=== PATIENT | male | born 1965 | race American Indian/Alaskan Native ===

== ENCOUNTER 2017-11-19 02:00 | Emergency (ER) | payer OTHER ==
[2017-11-19 03:22] VITALS: BP 162/88; PULSE 86; RESP 18; TEMP 98.2; O2SAT 99
--- NOTE | 2017-11-19 03:29 | ED PDOC ---
Arrival/HPI - General Chief Complaint: High Blood Pressure Time Seen by Provider: 11/19/17 03:19 Historian: Patient - History of Present Illness Narrative History of Present Illness (Text): 11/19/17 03:29 Rebekah Godfrey is a 52 year old male, whose past medical history includes hypertension, who presents to the Emergency department complaining of high blood pressure and chest pain. Patient states he has been experiencing high blood pressure for the past 2 days at home with associated headache and some chest tightness. Patient states he underwent a cardiac catheterization in 2016 but denies any stent placement. Patient denies any fever, chills, nausea, vomiting, diarrhea, urinary symptoms, back pain, neck pain, headache, dizziness , or any other complaints. Time/Duration: < week (2 days) Symptom Onset: Gradual Symptom Course: Unchanged Activities at Onset: Light Context: Home Past Medical History - Provider Review Nursing Documentation Reviewed: Yes - Cardiac Hx Hypertension: No - Psychiatric Hx Substance Use: No Family/Social History - Physician Review Nursing Documentation Reviewed: Yes Family/Social History: Unknown Family HX Smoking Status: n Hx Alcohol Use: No Hx Substance Use: No Allergies/Home Meds Allergies/Adverse Reactions: Allergies No Known Allergies Allergy (Verified 11/19/17 02:48) Home Medications: Home Meds Medication Instructions Recorded Confirmed Alprazolam [Xanax] 0.25 mg PO BID 11/19/17 11/19/17 Valsartan/Hydrochlorothiazide 1 each PO DAILY 11/19/17 11/19/17 [Diovan Hct 320-12.5 mg Tab] Review of Systems - Physician Review All systems were reviewed & negative as marked: Yes - Review of Systems Constitutional: Normal. absent: Fevers Eyes: Normal ENT: Normal Respiratory: Normal. absent: SOB, Cough Cardiovascular: Chest Pain Gastrointestinal: Normal. absent: Abdominal Pain, Diarrhea, Nausea, Vomiting Genitourinary Male: Normal. absent: Dysuria, Frequency, Hematuria, Urinary Output Changes Musculoskeletal: Normal. absent: Back Pain, Neck Pain Skin: Normal. absent: Rash Neurological: Headache. absent: Dizziness Endocrine: Normal Hemo/Lymphatic: Normal Psychiatric: Normal Physical Exam Vital Signs Reviewed: Yes Vital Signs Temp Pulse Resp BP Pulse Ox 11/19/17 02:45 98.2 F 86 18 162/88 H 99 Temperature: Afebrile Blood Pressure: Hypertensive Pulse: Regular Respiratory Rate: Normal Appearance: Positive for: Well-Appearing, Non-Toxic, Comfortable Pain Distress: None Mental Status: Positive for: Alert and Oriented X 3 - Systems Exam Head: Present: Atraumatic, Normocephalic Pupils: Present: PERRL Extroacular Muscles: Present: EOMI Conjunctiva: Present: Normal Mouth: Present: Moist Mucous Membranes Neck: Present: Normal Range of Motion Respiratory/Chest: Present: Clear to Auscultation, Good Air Exchange. No: Respiratory Distress, Accessory Muscle Use Cardiovascular: Present: Regular Rate and Rhythm, Normal S1, S2. No: Murmurs Abdomen: Present: Normal Bowel Sounds. No: Tenderness, Distention, Peritoneal Signs Back: Present: Normal Inspection Upper Extremity: Present: Normal Inspection. No: Cyanosis, Edema Lower Extremity: Present: Normal Inspection. No: Edema Neurological: Present: GCS=15, CN II-XII Intact, Speech Normal Skin: Present: Warm, Dry, Normal Color. No: Rashes Psychiatric: Present: Alert, Oriented x 3, Normal Insight, Normal Concentration Medical Decision Making ED Course and Treatment: 11/19/17 03:29 Impression: 52 year old male complaining of high blood pressure, headache, and chest tightness for 2 days. Plan: -- EKG -- Chest X-ray -- Labs, cardiac enzymes -- Urinalysis -- Reassess and disposition Progress Notes: 11/19/17 04:03 Reviewed EKG, NSR at [address] bpm[address] Non-specific ST/T wave changes. 11/19/17 05:15 Chest X-ray reviewed, shows no acute processes. 11/19/17 06:30 Discussed results and plan with pt. Pt was offered hospital observation for further evaluation and monitoring of symptoms. Pt will sign out against medical advice. Leaving Against Medical Advice (AMA): The patient is choosing to leave against medical advice. I have personally explained to the patient that choosing to do so may result in permanent bodily harm or . I have discussed at great length that without further evaluation and monitoring there may be unforeseen circumstances and/or deterioration causing permanent bodily harm or as a result of their choice. The patient is alert, oriented, and shows the mental capacity to make clear decisions regarding the patients health care at this time. The patient continues to wish to leave against medical advice. In light of the patients decision to leave against medical advice, follow-up has been arranged and the patient is aware of the importance to following up as instructed. The patient has been advised that they should return to the emergency room immediately if they change their mind at any time, or if their condition begins to change or worsen in any way.. - Lab Interpretations Lab Results: 11/19/17 03:15 11/19/17 03:15 Lab Results 11/19/17 03:15: Sodium 140, Potassium 3.8, Chloride 103, Carbon Dioxide 26, Anion Gap 14, BUN 12, Creatinine 1.1, Est GFR ( Amer) > 60, Est GFR (Non- Af Amer) > 60, Random Glucose 117 H, Calcium 9.6, Magnesium 2.0, Total Bilirubin 0.3, AST 40, ALT 27, Alkaline Phosphatase 65, Lactate Dehydrogenase 468, Total Creatine Kinase 108, Troponin I 0.02, Total Protein 7.4, Albumin 4.1 , Globulin 3.3, Albumin/Globulin Ratio 1.2 11/19/17 03:15: WBC 5.0, RBC 4.98, Hgb 14.8, Hct 42.7, MCV 85.7, MCH 29.7, MCHC 34.7, RDW 12.6, Plt Count 219, MPV 10.2, Gran % 38.8 L, Lymph % (Auto) 52.2 H, [place] % (Auto) 6.6 H, Eos % (Auto) 1.8, Baso % (Auto) 0.6, Gran # 1.93, Lymph # 2.6, [place] # 0.3, Eos # 0.1, Baso # 0.03 I have reviewed the lab results: Yes - RAD Interpretation Radiology Orders: 11/19/17 03:30 CHEST PORTABLE [RAD] Stat Technician Preventative Medicine: ED Physician - EKG Interpretation Interpreted by ED Physician: Yes Type: 12 lead EKG - Scribe Statement The provider has reviewed the documentation as recorded by the Olaf Bhatia Provider Scribe Attestation: All medical record entries made by the Scribe were at my direction and personally dictated by me. I have reviewed the chart and agree that the record accurately reflects my personal performance of the history, physical exam, medical decision making, and the department course for this patient. I have also personally directed, reviewed, and agree with the discharge instructions and disposition. Disposition/Present on Arrival - Present on Arrival Any Indicators Present on Arrival: No History of DVT/PE: No History of Uncontrolled Diabetes: No Urinary Catheter: No History of Decub. Ulcer: No History Surgical Site Infection Following: None - Disposition Have Diagnosis and Disposition been Completed?: Yes Diagnosis: Chest pain Disposition: AGAINST MEDICAL ADVICE Disposition Time: 06:30 Condition: UNKNOWN Discharge Instructions (ExitCare): Chest Pain (ED) Forms: [employer] (Martiniquais)
[2017-11-19 04:09] LABS: BASO # 0.03 [, K/mm3] (0.0-2.0); BASO % 0.6 % (0.0-3.0); EOS # 0.1 (0.0-0.7); EOS % 1.8 % (1.5-5.0); GRAN # 1.93 (1.4-6.5); GRAN % 38.8 % (50.0-68.0); HEMOGLOBIN 14.8 g/dL (14.0-18.0); LYMPH # 2.6 (1.2-3.4); LYMPH % 52.2 % (22.0-35.0); MEAN CELL VOLUME 85.7 fl (80.0-105.0); MEAN CORPUSCULAR HEMOGLOBIN 29.7 pg (25.0-35.0); MEAN CORPUSCULAR HGB CONC 34.7 g/dl (31.0-37.0); MEAN PLATELET VOLUME 10.2 fl (7.0-11.0); MONO # 0.3 (0.1-0.6); MONO % 6.6 % (1.0-6.0); RBC 4.98 [, 10^6/uL] (3.5-6.1); RED CELL DISTRIBUTION WIDTH 12.6 % (11.5-14.5)
[2017-11-19 04:18] LABS: ALB/GLOB RATIO 1.2 (1.1-1.8); ALBUMIN 4.1 g/dL (3.0-4.8); ALT/SGPT 27 U/L (7-56); AST/SGOT 40 U/L (17-59); BLOOD UREA NITROGEN 12 mg/dL (7-21); CALCIUM 9.6 mg/dL (8.4-10.5); GFR AFRICAN-AMERICAN > 60; GFR NON-AFRICAN AMERICAN > 60
[2017-11-19 06:18] LABS: TROPONIN I 0.02 ng/mL
--- NOTE | 2017-11-19 08:54 | RAD ---
HISTORY: cp COMPARISON: None available. TECHNIQUE: Chest, one view. FINDINGS: LUNGS: Mild central vascular/pulmonary venous congestion. Please note that chest x-ray has limited sensitivity for the detection of pulmonary masses. PLEURA: No significant pleural effusion identified. No definite pneumothorax . CARDIOVASCULAR: Cardiomegaly. Ectatic aorta. OSSEOUS STRUCTURES: No acute osseous abnormality identified. VISUALIZED UPPER ABDOMEN: Unremarkable. OTHER FINDINGS: None. IMPRESSION: Cardiomegaly. Ectatic aorta. Mild central vascular/ pulmonary venous congestion.
--- NOTE | 2017-11-19 10:32 | CARD ---
APPROVED REPORT EKG Measurement Heart [id number] <Conclusion> Normal sinus rhythm ASMI, age unknown ST & T wave changes c/w ischemia
== END 2017-11-19 06:33 | disposition left against medical advice (07) ==
LOC: ED 02:00
DX: R07.9 Chest pain, unspecified (principal); I10 Essential (primary) hypertension